=== PATIENT | female | born 1950 | race Caucasian/White ===

== ENCOUNTER 2016-04-15 09:00 | Outpatient (CLI) | payer MEDICARE, OTHER ==
[2015-08-29 05:17] VITALS: BP 151/85
[2016-04-15 10:07] LABS: eGFR (African) > 60; eGFR (Non-African) > 60
== END 2016-04-15 09:02 ==
LOC: LAB 09:00
PROVIDERS: ATTEND Family Medicine
DX: I10 Essential (primary) hypertension (principal); R73.9 Hyperglycemia, unspecified
CPT/HCPCS: 36415; 80053; 80061; 83036

== ENCOUNTER 2016-04-23 10:56 | Outpatient (CLI) | payer MEDICARE, OTHER ==
[2015-08-29 05:17] VITALS: BP 151/85
== END 2016-04-23 10:57 ==
LOC: RAD 10:56
PROVIDERS: ATTEND Family Medicine
DX: Z78.0 Asymptomatic menopausal state (principal)
CPT/HCPCS: 77080

== ENCOUNTER 2017-02-17 14:40 | Outpatient (CLI) | payer MEDICARE, OTHER ==
[2015-08-29 05:17] VITALS: BP 151/85
--- NOTE | 2017-02-17 15:19 | Diagnostic Imaging Report ---
PEPE URBANO [facility] [address] [facility] [address] [address] Report Submission Date: Feb 17, 2017 3:10:36 PM ACADEMIC SUPPORT DIRECTOR Patient Study Name: SHEEBA RYAN Date: Feb 17, 2017 2:52:08 PM ACADEMIC SUPPORT DIRECTOR Modality Type: CR Gender: F Description: UPPER EXTREMITY : 52 Institution: [facility] Physician: PEPE URBANO Examination: Plain film wrist History: Wrist discomfort Comparison exams: None available Findings: 3 views the wrist demonstrates articular degenerative changes - most pronounced at the 1st carpal metacarpal articulation. Generalized osteopenia. No fracture. No dislocation. No soft tissue abnormality. Impression: Osteopenia and degenerative changes. No evidence for fracture. Electronically signed on Feb 17, 2017 3:10:36 PM ACADEMIC SUPPORT DIRECTOR by: Mauro TEJEDA
== END 2017-02-17 14:45 ==
LOC: RAD 14:40
PROVIDERS: ATTEND Family Medicine
DX: M25.532 Pain in left wrist (principal)
CPT/HCPCS: 73110

== ENCOUNTER 2017-05-21 11:47 | Outpatient (CLI) | payer MEDICARE, OTHER ==
[2015-08-29 05:17] VITALS: BP 151/85
[2017-05-21 12:43] LABS: eGFR (African) > 60; eGFR (Non-African) > 60
== END 2017-05-21 11:50 ==
LOC: LAB 11:47
PROVIDERS: ATTEND Orthopaedic Surgery Sports Medicine
DX: M94.261 Chondromalacia, right knee (principal)
CPT/HCPCS: 36415; 80053; 82306; 83970

== ENCOUNTER 2017-06-04 11:53 | Outpatient (CLI) | payer MEDICARE, OTHER ==
[2015-08-29 05:17] VITALS: BP 151/85
[2017-06-04 12:42] LABS: eGFR (African) > 60; eGFR (Non-African) > 60
== END 2017-06-04 11:54 ==
LOC: LAB 11:53
PROVIDERS: ATTEND Clinical Nurse Specialist Medical-Surgical
DX: N95.9 Unspecified menopausal and perimenopausal disorder (principal); R26.9 Unspecified abnormalities of gait and mobility; Z82.62 Family history of osteoporosis; E66.9 Obesity, unspecified; Z13.820 Encounter for screening for osteoporosis; E55.9 Vitamin D deficiency, unspecified; M89.9 Disorder of bone, unspecified
CPT/HCPCS: 36415; 80053; 82306; 83970

== ENCOUNTER 2017-11-26 09:38 | Outpatient (CLI) | payer MEDICARE, OTHER ==
[2015-08-29 05:17] VITALS: BP 151/85
[2017-11-26 10:52] LABS: eGFR (African) > 60; eGFR (Non-African) > 60
== END 2017-11-26 09:40 ==
LOC: LAB 09:38
PROVIDERS: ATTEND Family Medicine
DX: E55.9 Vitamin D deficiency, unspecified (principal); I10 Essential (primary) hypertension
CPT/HCPCS: 36415; 80053; 82306

== ENCOUNTER 2018-01-22 07:37 | Outpatient (CLI) | payer MEDICARE, OTHER ==
[2015-08-29 05:17] VITALS: BP 151/85
== END 2018-01-22 07:40 ==
LOC: LAB 07:37
PROVIDERS: ATTEND Family Medicine
DX: E55.9 Vitamin D deficiency, unspecified (principal)
CPT/HCPCS: 36415; 82306

== ENCOUNTER 2018-07-13 12:07 | Outpatient (CLI) | payer OTHER ==
[2015-08-29 05:17] VITALS: BP 151/85
[2018-07-13 12:38] LABS: eGFR (Non-African) > 60
== END 2018-07-13 12:10 ==
LOC: LAB 12:07
PROVIDERS: ATTEND Family Medicine
DX: B35.1 Tinea unguium (principal)
CPT/HCPCS: 36415; 80053

== ENCOUNTER 2019-02-22 14:33 | Outpatient (CLI) | payer OTHER ==
[2015-08-29 05:17] VITALS: BP 151/85
[2019-02-22 15:22] LABS: eGFR (Non-African) > 60
[2019-02-22 15:48] LABS: BASOPHILS % 0.6 % (0.0-1.5); NEUTROPHILS # 16.1 # k/uL (1.4-7.7)
[2019-02-22 15:49] LABS: SEGMENTED NEUTROPHILS % 82 % (39-79)
--- NOTE | 2019-02-22 16:12 | Diagnostic Imaging Report ---
PATIENT MR#: [id number] PATIENT PATIENT NAME: SHEEBA RYAN DATE OF : 1950 REFERRING PHYSICIAN: Kelly Hu EXAM DATE: 02/22/2019 ACCESSION NUMBER: [id number] EXAM DESCRIPTION: CT ABD PELVIS W/ CON Examination: CT Abdomen/pelvis History: GENERALIZED ABDOMINAL PAIN Comparison exams: None available Technique: CT Abdomen/pelvis with IV protocol. Findings: Liver, spleen, adrenals and kidneys are without gross irregularity. Inflammatory changes s urrounding the body and tail of the pancreas. Pancreas appears to be fatty replaced. Distended gallbladder with central g allstone. Mild pericholecystic stranding. No suspicious renal calcifications. Ureters are nondilated in their course through the abdomen and pelvis. No central calcifications. Bladder margin within normal limits. Abdominal aorta w ithout aneurysm. Peripheral atherosclerotic disease. Cardiac silhouette is not enlarged. No pericardial effusion. Bowel unopacified limiting evaluation. No abnormal dilation. Stool within the large bowel limiting se nsitivity. No mesenteric inflammatory changes or free fluid. Appendix not visualized. Hiatal hernia. Osseous structures demonstrate degenerative spurring. Lung bases demonstrate scarring without focal i nfiltrate. No effusion. Impression: Pancreatic body/tail inflammatory changes - pancreatitis. Mildly distended gallbladder with large central gallstone. Associated mild perigallbladder inflammato ry changes. Consider right upper quadrant ultrasound to further evaluate if clinically warranted. No abnormal bowel dilation or inflammation. Hiatal hernia. No suspicious renal calcifications or abnormal ureteric dilation. No lung base consolidation or effusion. Read by: Dr. Mauro Vick Transcribed by: Transcribed Date: Electronically signed by: Dr. Mauro Vick Date signed: 02/22/2019 4:12:27 PM
== END 2019-02-22 14:38 ==
LOC: LAB 14:33
PROVIDERS: ATTEND Family Medicine
DX: R10.84 Generalized abdominal pain (principal)
CPT/HCPCS: 36415; 74177; 80053; 83690; 85025; Q9967

== ENCOUNTER 2019-02-23 09:06 | Inpatient (IN) | payer OTHER ==
[2019-02-23] MEDS ORDERED: 0.9 % SODIUM CHLORIDE 1,000 ML IV ONE ×2 (09:31→09:35)
--- NOTE | 2019-02-23 09:39 | History and Physical Report ---
History of Present Illnes - History of Present Illness Reason for Visit: Abdominal pain History of Present Illness: Patient presented to clinic with 36 hours of abdominal pain with vomiting, diarrhea, and belching. Those symptoms have resolved but pain remains. She was diagnosed with pancreatitis via CT and labs (WBC 19,000 and lipase 300+ but normal LFT's). I made her NPO at home to see how she did but today the pain is too much. I will admit her to Acute Care for continued treatment of her pancreatitis. SHe has been up all night with pain. NO more vomiting or diarrhea. Passing gas. Also noted was a large gallstone in gallbladder with mild inflammation. - Past Medical History Cardiac: HTN Musculoskeletal: Osteoarthritis Endocrine: obesity, Other (Vitamin D deficiency; pre-DM) - Past Surgical History Past Surgical History: Other (Knee 1992; R shoulder fx 07/24; Rotator cuff 1999) - Past Family History Mother Family History: DM Father Family History: CAD, DM Sister 1 Family History: DM (2 sisters with DM) - Past Social History Smoke: No Alcohol: Rare Drugs: None Lives: With Family ( Bill) - Health Maintenance Health Maintenance: Cholesterol, Pneumococcal Vaccine (Prevnar 13 in 2017), Pap Smear, Mammogram, Colonoscopy Influenza Vaccine: Current for this Influenza Season Pneumonia Vaccine: Yes Resuscitation Status: Resusciation Status Resuscitation Status Full Code Review of Systems - Review of Systems Constitutional: Weakness. negative: Fever Eyes: negative: pain ENT: negative: Nose Congestion, Throat Pain Respiratory: negative: Cough, Shortness of Breath Cardiovascular: negative: Chest Pain Gastrointestinal: Nausea, Vomiting, Abdominal Pain, Diarrhea Genitourinary: negative: Dysuria, Frequency Musculoskeletal: negative: Neck Pain, Shoulder Pain Skin: negative: Rash Neurological: Weakness - Medications/Allergies Allergies/Adverse Reactions: Allergies Allergy/AdvReac Type Severity Reaction Status Date / Time No Known Drug Allergies Allergy Verified 08/29/15 02:38 Current Inpatient Medications: Current Inpatient Medications Enoxaparin Sodium (Lovenox) 40 mg SQ DAILY LORIE Stop: 03/10/19 08:59 Dextrose/Sodium Chloride (D51/2ns) 1,000 mls @ 250 mls/hr IV Q10H LORIE Stop: 03/25/19 09:59 Sodium Chloride (Normal Saline) 1,000 mls @ 1,000 mls/hr IV Q1H ONE Stop: 02/23/19 10:34 Morphine Sulfate () 2 mg IV Q2H PRN PRN Reason: Severe Pain (Score 8-10) Stop: 03/25/19 09:36 Exam - Exam General: Alert, Oriented to Person, Oriented to Place, Oriented to Time, Cooperative, No acute distress, Morbidly Obese HEENT: Atraumatic, PERRLA, EOMI. No: Mouth Mucous membr. moist/[place] Neck: Normal Range of Motion Lungs: Clear to auscultation Cardiovascular: Regular rate Abdomen: Soft, Other (TEnder LUQ; epigastrium, LLQ), Decreased Bowel Sounds Integumentary: Normal Extremities: No edema Neurological: Generalized Weakness Psych/Mental Status: Mental status NL, Mood NL, Appropriate Affect, Intact Judgment Assessment/Plan - Assessment/Plan (1) Pancreatitis Status: Acute Current Visit: Yes Qualifiers: Chronicity: acute Pancreatitis type: unspecified pancreatitis type Acute pancreatitis complication: unspecified Qualified Code(s): K85.90 - Acute pancreatitis without necrosis or infection, unspecified Plan: Unsure of etiology. Check lipids. Discussed with surgery - will need GB out eventually. Has appt 12-2 to discuss this. Will make NPO. Fluid rehydrate. Given a liter NS bolus then will run D51/2 NS at 250 ml/hr. Patient feeling better after bolus. Will do ice chips only. Morphine IV as needed. (2) Gallstones Status: Acute Current Visit: Yes Plan: No evidence of obstruction - LFT's normal. Plan for outpatient cholecystectomy. (3) HTN (hypertension) Status: Acute Current Visit: Yes Qualifiers: Hypertension type: essential hypertension Qualified Code(s): I10 - Essential (primary) hypertension Plan: Will stop HCTZ as it can cause pancreatitis. Change to lisinopril 10 mg. Titrate as needed. (4) Pre-diabetes Status: Acute Current Visit: Yes Plan: Check A1C. Get dietary consult. VTE Assessment - RISK FACTOR SCORE VTE RISK FACTOR SCORES: AGE OVER 60 YEARS, ANTICIPATED BED CONFINEMENT OR IMMOBILIZATION > 24 HOURS - RISK VTE MODERATE RISK: SCORE OF 2 (RISK PROXIMAL DVT 2-4%) PROPHYAXIS NEEDED
--- NOTE | 2019-02-23 12:01 | Diagnostic Imaging Report ---
PATIENT MR#: [id number] PATIENT PATIENT NAME: SHEEBA RYAN DATE OF : 1950 REFERRING PHYSICIAN: Kelly Hu EXAM DATE: 02/23/2019 ACCESSION NUMBER: [id number] EXAM DESCRIPTION: US ABDOMEN LIMITED Ultrasound abdomen limited Indication: PANCREATITIS, PAIN IN RUQ X W PANCREATITIS Findings: Ultrasonographic examination without prior shows the liver to be normal in size, contour and echotext ure. There is no intrahepatic duct dilation. Cholelithiasis is noted. There is mild gallbladder wall thickening. Significant pericholecystic fluid is not identified. The pancreas is poorly assessed a superimposed bowel gas. There is no definitive peripancreatic fluid collection. The common bile duct measures 3.5 mm The right kidney measures: 11.1 x 5.4 x 6.6 cm . There is no hydronephrosis. Impression: Cholelithiasis with mild gallbladder wall thickening Read by: Dr. Wenceslao Hoover Transcribed by: Transcribed Date: Electronically signed by: Dr. Wenceslao Hoover Date signed: 02/23/2019 12:00:36 PM
[2019-02-23] MEDS: DEXTROSE 5 %-0.45 % SOD CHLORD 1,000 ML IV SCH ×3 (12:04→20:09)
[2019-02-23 12:28] VITALS: BMI 45.0
[2019-02-23 12:35] LABS: BASOPHILS % 0.7 % (0.0-1.5); NEUTROPHILS # 13.6 # k/uL (1.4-7.7)
[2019-02-23 13:12] LABS: eGFR (Non-African) > 60
[2019-02-23 13:13] LABS: HDL 49 mg/dL (>40)
[2019-02-23] MEDS: MORPHINE SULFATE 2 MG/ML VIAL IV PRN ×2 (14:22→19:41)
[2019-02-23] MEDS: LISINOPRIL 10 MG TABLET PO SCH (17:10)
[2019-02-24] MEDS: DEXTROSE 5 %-0.45 % SOD CHLORD 1,000 ML IV SCH ×4 (03:53→17:06)
[2019-02-24 06:56] LABS: BASOPHILS % 0.4 % (0.0-1.5); NEUTROPHILS # 10.4 # k/uL (1.4-7.7)
[2019-02-24 07:01] LABS: eGFR (Non-African) > 60
[2019-02-24] MEDS: LISINOPRIL 10 MG TABLET PO SCH (08:42)
[2019-02-24] MEDS: ENOXAPARIN SODIUM 40 MG/0.4 ML DISP.SYRIN SQ SCH (08:42)
--- NOTE | 2019-02-24 09:40 | Diagnostic Imaging Report ---
PATIENT MR#: [id number] PATIENT PATIENT NAME: SHEEBA RYAN DATE OF : 1950 REFERRING PHYSICIAN: Kelly Hu EXAM DATE: 02/24/2019 ACCESSION NUMBER: [id number] EXAM DESCRIPTION: ABDOMEN 1VIEW 1 view of the abdomen History: KUB, ABD PAIN, HYPOACTIVE BOWEL SOUNDS, HX OF PANCREATITIS, PT STATES LLQ WORSE THAN RT, NO BOWEL MOVEMENT X3 DAYS Comparison: CT dated Feb 22, 2019 Large 6 cm calcification amorphous calcification is seen in the right gluteal soft tissues. Several p elvic phleboliths are present Slightly distended bowel loops are seen in the abdomen. The descending colon is relatively collapsed. Limited evaluation of free intraperitoneal air Lower thoracic and lumbosacral spine degenerative changes Impression: Distended bowel loops in the upper and mid abdomen, relatively collapsed descending and sigmoid colon , findings may be related to ileus and/or partial bowel obstruction, recommend followup. Limited evaluation for free intraperitoneal air on this study. Read by: Dr. Jing Cervantes Transcribed by: Transcribed Date: Electronically signed by: Dr. Jing Cervantes Date signed: 02/24/2019 9:38:52 AM
[2019-02-24] MEDS: MORPHINE SULFATE 2 MG/ML VIAL IV PRN ×2 (10:22→18:29)
[2019-02-25] MEDS: DEXTROSE 5 %-0.45 % SOD CHLORD 1,000 ML IV SCH (03:01)
--- NOTE | 2019-02-25 07:12 | Diagnostic Imaging Report ---
PATIENT MR#: [id number] PATIENT PATIENT NAME: SHEEBA RYAN DATE OF : 1950 REFERRING PHYSICIAN: Kelly Hu EXAM DATE: 02/25/2019 ACCESSION NUMBER: [id number] EXAM DESCRIPTION: ABD COMPLETE 5 views Obstructive series Comparison: February 24, 2019 Bowel distention has decreased in the interim. Multilevel lower lumbar spine degenerative changes. Am orphous calcification right gluteal region, pelvic phleboliths are noted Limited evaluation for free intraperitoneal air on this supine study Impression: Slight interval improvement with decreased bowel distention when compared to the prior study. Read by: Dr. Jing Cervantes Transcribed by: Transcribed Date: Electronically signed by: Dr. Jing Cervantes Date signed: 02/25/2019 7:10:56 AM
[2019-02-25 07:15] LABS: BASOPHILS % 0.4 % (0.0-1.5); NEUTROPHILS # 6.5 # k/uL (1.4-7.7); eGFR (Non-African) > 60
[2019-02-25] MEDS ORDERED: POTASSIUM CHLORIDE 10 MEQ TABLET.ER PO ONE (08:06)
--- NOTE | 2019-02-25 08:13 | Discharge Summary ---
Discharge Summary - Discharge [facility] Admission Date: 02/23/19 Discharge Date: 02/25/19 Discharge To: Home History of Present Illness: Patient presented to clinic with 36 hours of abdominal pain with vomiting, diarrhea, and belching. Those symptoms have resolved but pain remains. She was diagnosed with pancreatitis via CT and labs (WBC 19,000 and lipase 300+ but normal LFT's). I made her NPO at home to see how she did but today the pain is too much. I will admit her to Acute Care for continued treatment of her pancreatitis. SHe has been up all night with pain. NO more vomiting or diarrhea. Passing gas. Also noted was a large gallstone in gallbladder with mild inflammation. Condition at Discharge: Stable Home Medications: Ambulatory Orders Medication Instructions Recorded Metoclopramide HCl [Reglan] 10 mg PO Q12H PRN #10 tablet 08/29/15 Lisinopril [Prinivil] 10 mg PO DAILY tablet 02/25/19 Allergies/Adverse Reactions: Allergies Allergy/AdvReac Type Severity Reaction Status Date / Time No Known Drug Allergies Allergy Verified 08/29/15 02:38 Patient Problems: Current Active Problems Problem Status Onset Gallstones Acute HTN (hypertension) Acute Pancreatitis Acute Pre-diabetes Acute Discharge Summary: Patient admitted for treatment of acute pancreatitis. IVF bolus followed by aggressive IVF hydration. Morphine given twice for pain, which was much better after IVF and bowel rest. She was transitioned from NPO to clear liquids. She did have and ileus that was improved with walking. ON day of discharge, pain was gone and she was passing "a lot" of gas. Will continue on CLD for a day then to full before going to regular but low fat diet. She has an appt on 03-08 with a surgeon to discuss cholecystectomy. She will push fluids. Tramadol for pain. Maxzide was stopped and changed to lisinopril 10 mg (due to HCTZ possible leading to pancreatitis). WAtch BP and for side effects. A1C was 5.7. Potassium at 3.4 on discharge replaced orally. Discharged home in good condition. Hospital Course: Discharge Dx: Pancreatitis. GAllstones. HTN
--- NOTE | 2019-02-25 08:13 | Inpatient Progress Note ---
Subjective - Required Recertification Statement I anticipate X number of days because-include discharge plan: 1 - Review of Systems Subjective: NOTE FROM 02-24-19 Patient feeling some better. Pain less. ONly morphine once. Not passing gas. Objective - Exam Vitals and I&O: Vital Signs Temp 97.8 F 02/25/19 05:54 Pulse 74 02/25/19 05:54 Resp 20 02/25/19 05:54 BP 128/71 02/25/19 05:54 Pulse Ox 97 02/25/19 05:54 Intake & Output 02/24/19 02/24/19 02/25/19 11:59 23:59 11:59 Intake Total 2300 1220 1440 Output Total 750 Balance 2300 1220 690 Weight 144.242 kg 141.067 kg Intake: IV 2000 500 600 Right Hand 2000 500 600 Oral 300 720 840 Output: Urine 750 Other: Voiding Method Toilet Toilet Toilet # Voids 3 # Bowel Movements 0 General: Alert, Oriented to Person, Oriented to Place, Oriented to Time, Cooperative, No acute distress Lungs: Clear to auscultation, Normal air movement, Speaks full Sentences Cardiovascular: Regular rate Abdomen: Soft, Decreased Bowel Sounds. No: No tenderness (Tenderness much improved.) - Results Results: Laboratory Results WBC 9.70 K/ul (4.00-12.00) 02/25/19 06:25 RBC 4.48 M/ul (3.90-5.20) 02/25/19 06:25 Hgb 10.9 g/dL (11.5-16.0) L 02/25/19 06:25 Hct 33.5 % (34.5-46.5) L 02/25/19 06:25 MCV 75.0 fl (80.0-100.0) L 02/25/19 06:25 MCH 24.4 pg (28.0-34.0) L 02/25/19 06:25 MCHC 32.6 g/dL (30.0-36.0) 02/25/19 06:25 RDW 13.8 % (11.3-14.3) 02/25/19 06:25 Plt Count 346 K/mm3 (130-400) 02/25/19 06:25 Neut % (Auto) 66.4 % (39.0-79.0) 02/25/19 06:25 Lymph % (Auto) 17.1 % (16.0-50.0) 02/25/19 06:25 Phelps % (Auto) 7.0 % (0.0-11.0) 02/25/19 06:25 Eos % (Auto) 9.1 % (0.0-6.8) H 02/25/19 06:25 Baso % (Auto) 0.4 % (0.0-1.5) 02/25/19 06:25 Neut # (Auto) 6.5 # k/uL (1.4-7.7) 02/25/19 06:25 Lymph # (Auto) 1.7 # k/uL (0.6-4.0) 02/25/19 06:25 Phelps # (Auto) 0.7 # k/uL (0.0-0.9) 02/25/19 06:25 Eos # (Auto) 0.9 # k/uL (0.0-0.6) H 02/25/19 06:25 Baso # (Auto) 0.0 # k/uL (0.0-0.5) 02/25/19 06:25 Sodium 138 mmol/L (137-145) 02/25/19 06:25 Potassium 3.4 mmol/L (3.5-5.1) L 02/25/19 06:25 Chloride 103 mmol/L (98-107) 02/25/19 06:25 Carbon Dioxide 28 mmol/L (22-30) 02/25/19 06:25 Anion Gap 10.4 02/25/19 06:25 BUN 10 mg/dL (7-17) 02/25/19 06:25 Creatinine 0.70 mg/dL (0.52-1.04) 02/25/19 06:25 Estimated Creat Clear 204 02/25/19 06:25 Est GFR ( Amer) > 60 (60-) 02/25/19 06:25 Est GFR (Non-Af Amer) > 60 (60-) 02/25/19 06:25 Glucose 129 mg/dL (74-106) H 02/25/19 06:25 Hemoglobin A1c 5.7 % (<5.7) 02/23/19 14:25 Calcium 8.7 mg/dL (8.4-10.2) 02/25/19 06:25 Total Bilirubin 0.8 mg/dL (0.2-1.3) 02/25/19 06:25 AST 38 U/L (15-46) 02/25/19 06:25 ALT 15 U/L (0-35) 02/25/19 06:25 Alkaline Phosphatase 88 U/L (38-126) 02/25/19 06:25 Total Protein 7.1 g/dL (6.3-8.2) 02/25/19 06:25 Albumin 3.5 g/dL (3.5-5.0) 02/25/19 06:25 Triglycerides 66 mg/dL (<150) 02/23/19 09:32 Cholesterol 149 mg/dL (<200) 02/23/19 09:32 LDL Cholesterol, Calc 87 mg/dL (<130) 02/23/19 09:32 HDL Direct 49 mg/dL (>40) 02/23/19 09:32 Cholesterol/HDL Ratio 3.0 (<4.4) 02/23/19 09:32 Lipase 148 U/L (23-300) 02/23/19 09:32 Assessment/Plan - Assessment/Plan (1) Pancreatitis Status: Acute Current Visit: Yes Qualifiers: Chronicity: acute Pancreatitis type: unspecified pancreatitis type Acute pancreatitis complication: unspecified Qualified Code(s): K85.90 - Acute pancreatitis without necrosis or infection, unspecified Plan: Xray shows ileus. Will do CLD today. Patient advised to get up and walk to help bowels. WAtch closely. WBC improved. (2) Gallstones Status: Acute Current Visit: Yes (3) HTN (hypertension) Status: Acute Current Visit: Yes Qualifiers: Hypertension type: essential hypertension Qualified Code(s): I10 - Essential (primary) hypertension Plan: Doing well on lisinopril. (4) Pre-diabetes Status: Acute Current Visit: Yes
[2019-02-25] MEDS: LISINOPRIL 10 MG TABLET PO SCH (08:35)
[2019-02-25] MEDS: ENOXAPARIN SODIUM 40 MG/0.4 ML DISP.SYRIN SQ SCH (08:35)
[2019-02-25 08:58] VITALS: BP 137/84
== END 2019-02-25 09:15 | disposition home or self-care (01) | DRG 439 ==
LOC: SOUTH 09:06
PROVIDERS: ADMIT Family Medicine; ATTEND Family Medicine
DX: K85.30 Drug induced acute pancreatitis without necrosis or infection (principal); K56.7 Ileus, unspecified; Z68.42 Body mass index [BMI] 45.0-49.9, adult; I10 Essential (primary) hypertension; M19.90 Unspecified osteoarthritis, unspecified site; T50.2X5A Adverse effect of carbonic-anhydrase inhibitors, benzothiadiazides and other diuretics, initial encounter; E66.9 Obesity, unspecified; E55.9 Vitamin D deficiency, unspecified; R73.03 Prediabetes; K80.80 Other cholelithiasis without obstruction; Z79.899 Other long term (current) drug therapy
CPT/HCPCS: 36415; 74018; 74019; 76705; 80053; 80061; 83036; 83690; 85025; 99221; 99231; 99238; J1650; J2270; J7030; S1016; S5010